=== PATIENT | female | born 1950 | race Caucasian/White ===

== ENCOUNTER → 2018-08-27 | Day surgery (SDC) | payer MEDICARE ==
[~2018-08-27] MED LIST: COREG25 MG PO; LASIX 20 MG TAB20 MG PO; LOVAZA1000 MG PO; OMEGA-31000 M1 PO; PROPAFENONE 15150 MG PO; PROTONIX40 M1 PO; SYNTHROID100 MC1 PO; ZESTORETIC 20-1 EAC3 PO
[2018-08-27 09:00] LABS: HEMATOCRIT 41.2 % (37.0-47.0); HEMOGLOBIN 13.6 gm/dL (12.0-15.0); MCH 29.5 pg (26.0-34.0); MCV 89.5 fL (80.0-100.0); MPV 7.5 fl. (7.2-11.1); RBC 4.6 mil/uL (4.20-5.00); RDW-CV 13.5 % (10.5-14.5); WBC 8.6 thou/uL (4.0-11.0)
[2018-08-27 09:05] LABS: CALCIUM 9.4 mg/dL (8.5-10.1); POTASSIUM 3.4 mmol/L (3.5-5.1)
[2018-08-27 09:15] LABS: ALBUMIN 3.4 g/dL (3.4-5.0); TOTAL BILIRUBIN 0.6 mg/dL (<0.1-1.0); TOTAL PROTEIN 7.3 g/dL (6.4-8.2)
--- NOTE | 2018-08-27 12:44 | EKG ---
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: : 1950 Requested By: Rai Busch Order Number: [id number] Reading MD: Fortunato Mckinnon Measurements Intervals [place] Rate: 65 P: -18 GA: 177 QRS: 9 QRSD: 108 T: 29 QT: 436 QTc: 454 Interpretive Statements Sinus rhythm Borderline T wave abnormalities No previous ECG available for comparison Electronically Signed On 08-27-2018 12:44:40 BANQUET ATTENDANT by Fortunato Mckinnon [email or web address] <ELECTRONICALLY SIGNED> By: Fortuanto Mckinnon MD, [facility] 08/27/18 1244 0834 0834 Fortunato Mckinnon MD, FACC /EPI
--- NOTE | 2018-09-01 14:09 | PATH ---
[address] [address] PATHOLOGY RPT PROCEDURE Name: KAITY POLLOCK Room: [facility]#: [id number] Admission: 08/27/18 Date of : 46 Discharge: Report #: [id number] Path Case #: [id number] [facility] Accession Number: [id number] . 01 Material submitted: . PART A: SMALL BOWEL BIOPSIES FOR CELIAC EVALUATION PART B: ANTRAL BIOPSY FOR H-PYLORI FOR EROSIVE GASTRITIS PART C: PROXIMAL SIGMOID COLON POLYP . 01 Clinical history: . Esophagitis, incontinence . 02 Diagnosis: A. Small bowel, biopsy: - Duodenal mucosa with intact villous architecture and no increase in intraepithelial lymphocytes. . B. Antrum, biopsy: - Mild chronic inactive gastritis. - An H. pylori immunostain is negative (Block B1; appropriate control). . C. Proximal sigmoid colon, biopsy: - Hyperplastic polyp with extensive cautery artifact. . (MAP:vjm;08/30/2018) AGA/08/30/2018 . 02 Electronically signed: . Nestor Cantu MD, Pathologist NPI- [id number] . 01 Gross description: . A. Received in formalin labeled "Kaity Pollock, small bowel biopsies for celiac evaluation," are 4 segments of bro soft tissue measuring 1.3 x 0.4 x 0.3 cm in aggregate dimensions and ranging from 0.2 to 0.5 cm in maximum dimension. The specimen is submitted entirely in cassette A1. . B. Received in formalin labeled "Kaity Pollock, antral biopsy for H. pylori for erosive gastritis," is a single segment of bro soft tissue measuring 0.5 cm in maximum dimension. The specimen is entirely submitted in cassette B1. . C. Received in formalin labeled "Kaity Pollock, proximal sigmoid colon polyp," is a single segment of bro soft tissue measuring 0.5 cm in maximum dimension. The specimen is entirely submitted in cassette C1. (TSD; 08/27/2018) TOB/TOB . 02 [place] [address] PATHOLOGY RPT PROCEDURE Name: KAITY POLLOCK Fred Room: [facility]#: [id number] Admission: 08/27/18 Date of : 46 Discharge: Report #: [id number] Path Case #: [id number] Pathologist provided ICD-10: K29.50, K63.5 . 02 CPT . 584766, 296066, 174075, B21661 Specimen Comment: A courtesy copy of this report has been sent to Specimen Comment: [phone], , . Specimen Comment: Report sent to , DR EDMONDSON / DR BURGESS Specimen Comment: A duplicate report has been generated due to demographic updates. Performed at: [address] [facility], [place] [id number] MD Ryan Victoria MD Phone: [phone] Performed at: 02 [facility] [address], [place], [place] [id number] MD Shaji Howell MD Phone: [phone]
--- NOTE | 2018-09-01 16:10 | PROC ---
[address] [address] PROCEDURE REPORT Name: PHILLKAITY Fred Room: [facility]#: [id number] Admission: 08/27/18 Attend Phys: Rai Busch DO Discharge: Date of : 46 Report #: [id number] THIS REPORT FOR: //name// CC: Babak Hathaway MD [facility] DATE OF SERVICE: 08/27/2018 REFERRING PHYSICIAN: Babak Dixon MD. PROCEDURE PERFORMED: Esophagogastroduodenoscopy with biopsy; colonoscopy with terminal ileoscopy and polypectomy x 1. SEDATION USED: Monitored anesthesia care with propofol. SPECIMEN RETRIEVED: Biopsies taken from the antrum to evaluate for H. pylori; small bowel biopsies taken to evaluate for gluten sensitivity; sigmoid colon polyp. 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 She has had some issues with some reflux issues and bowel issues with associated fecal incontinence at times. She has unpredictable stools. She had tried to eliminate gluten, dairy with slight change in her symptoms, but did not have a whole lot of success with the same. Her last colonoscopy was performed in 2013, which was poorly prepped and it was recommended she undergo endoscopic evaluation within a couple of years. She is now here for upper and lower endoscopy. She was seen in our office on 08/13/2018 per our nurse practitioner, Yeni Mojica and scheduled for today's examination. See our office notes for further details. ALLERGIES: None. MEDICATIONS: At time include acetaminophen, aspirin, carvedilol, Coenzyme Q10, furosemide, glucosamine, levothyroxine, lisinopril/hydrochlorothiazide, loratadine, Lovaza, pantoprazole, potassium, probiotic, propafenone and turmeric. PHYSICAL EXAMINATION: [place] [address] PROCEDURE REPORT Name: KAITY POLLOCK Room: [facility]#: [id number] Admission: 08/27/18 Attend Phys: Rai Busch DO Discharge: Date of : 46 Report #: [id number] GENERAL: Revealed pleasant 67-year-old white female who is awake and alert. CARDIOPULMONARY: Revealed a regular rate and rhythm. LUNGS: Clear. ABDOMEN: Soft, nontender. No rebound or guarding. LABORATORY TESTS: From today revealed a white count of 8.6, hemoglobin 13.6, platelet and 336,000, MCV is 89.5 and RDW is 13.5. Sodium 142, potassium 3.4, chloride 105, bicarbonate is 28, BUN 20, and creatinine 1.0. Total bilirubin 0.6, alkaline phosphatase 85, AST 23, ALT 32, albumin is 3.4. The patient had a full CT scan of the abdomen and pelvis with oral and IV contrast on 08/06/2018, which revealed postsurgical changes of the stomach. She had some hemangiomas within her liver and some cyst. She has some diverticulosis and possibly a lipoma of the cecum usage. DESCRIPTION OF PROCEDURE: After obtaining informed consent, the patient was adequately sedated. The Olympus video upper scope was advanced under direct vision into the esophagus, which appeared completely normal. There was no esophagitis, rings, or web strictures. Stomach was entered and examined in its entirety and revealed postsurgical change in epigastric sleeve. It appears to be stretched out but with some mild erosive gastritis nor in the antrum. Biopsy taken for H. pylori. I saw no residual evidence for any tumor or inflammatory changes noted within the stomach. Pylorus was widely patent revealing a normal duodenal bulb and distal duodenum. Biopsies were taken from the second portion of duodenum to evaluate for food sensitivity. The scope was withdrawn. The patient was repositioned for colonoscopy. Anal inspection and digital rectal exam was unremarkable about diverticulosis. The patient had mildly severe left-sided diverticular disease without diverticulitis or stricture. She had one small polyp within the sigmoid colon, which was excised and treated by cold snare polypectomy. The remainder of the colon to the level of the terminal ileum was normal. Scope was withdrawn. The patient sent to recovery room in stable condition. IMPRESSION: 1. Postsurgical change compatible with gastric sleeve. 2. Some stretching of the sleeve notable. 3. Mild erosive gastritis - biopsies taken for Helicobacter pylori. 4. Otherwise, normal upper endoscopy - small biopsies taken to rule out for celiac. 5. Sigmoid colon polyp, excised and retrieved. 6. Mildly severe left-sided diverticular disease without diverticulitis or stricture. 7. Otherwise, normal colonoscopy and terminal ileoscopy. RECOMMENDATIONS: [address] [address] PROCEDURE REPORT Name: KAITY POLLOCK Room: [facility]#: [id number] Admission: 08/27/18 Attend Phys: Rai Busch DO Discharge: Date of : 46 Report #: [id number] 1. The patient should be able to be discharged home today. Resume all her home medications. 2. We will begin use of Metamucil 1 tablespoon or Benefiber 1 scoop in 8 ounces of water once or twice daily with bowel irregularity. 3. She can follow up in our office with our nurse practitioner, Yeni Mojica in about 4-6 weeks to ensure that she is doing better with regards to the bowel issues. 4. Repeat colonoscopy will not be necessary for up to 5 years. 5. I have discussed all those plans with Kaity Carrillo as well and she is agreeable to the same. <ELECTRONICALLY SIGNED> By: Rai Busch DO 09/01/18 1610 0656 [id number] Busch DO /nt
== END | disposition home or self-care (01) ==
LOC: M.SUR 08:10
PROVIDERS: Internal Medicine Gastroenterology
DX: K63.5 Polyp of colon (principal); K57.30 Diverticulosis of large intestine without perforation or abscess without bleeding; K29.50 Unspecified chronic gastritis without bleeding; I11.0 Hypertensive heart disease with heart failure; I50.9 Heart failure, unspecified; I48.91 Unspecified atrial fibrillation; G47.33 Obstructive sleep apnea (adult) (pediatric); F17.210 Nicotine dependence, cigarettes, uncomplicated; E03.9 Hypothyroidism, unspecified; K21.9 Gastro-esophageal reflux disease without esophagitis; E66.09 Other obesity due to excess calories; Z90.710 Acquired absence of both cervix and uterus; Z90.49 Acquired absence of other specified parts of digestive tract; Z79.899 Other long term (current) drug therapy